=== PATIENT | female | born 1995 | race American Indian/Alaskan Native ===

== ENCOUNTER 2016-06-27 14:55 | Emergency (ER) | payer SELFPAY ==
[2016-06-27] MEDS ORDERED: TYLENOL PO ONE (16:09)
[2016-06-27] MEDS ORDERED: CLEOCIN IM ONE (18:31)
[2016-06-27] MEDS ORDERED: NORCO 5/325 PO ONE (18:31)
--- NOTE | 2016-06-27 18:32 | Emergency Department Report ---
- General Chief complaint: Skin/Abscess/Foreign Body Stated complaint: BOIL UNDER L ARM/L SIDE HEAD/ARM PAIN Time Seen by Provider: 06/27/16 18:22 Source: patient, family Mode of arrival: Ambulatory Limitations: No Limitations - History of Present Illness Initial comments: Patient here reports poor L2 her left underarm. She says she notices several days ago and it's painful at 10 out of 10 and she says she is also having headache at 8 out of 10. She said the boil under her left arm. It is throbbing pain in her headache the front of her head is achy. She said it comes and goes and she gets relief with Tylenol. She is not having any headache at present but she is having pain under her left arm. Denies any discharge from boil. Denies any nausea or vomiting. She reports fever and chills. MD complaint: abscess/boil Onset/Timin -: days(s) Tetanus Up to Date: yes Location: LUE (left armpit) Severity: severe Severity scale (0 -10): 10 Quality: other (pain is throbbing) Consistency: constant Improves with: immobilization, medication Worsens with: palpation, movement Context: other ( abscess to arm.) Associated symptoms: fever, chills Treatments Prior to Arrival: NSAID - Related Data Previous Rx's Medication Instructions Recorded Last Taken Type HYDROcodone/APAP 5-325 [Brandeis 1 each PO Q6HR PRN #14 tablet 06/27/16 Unknown Rx 5/325] Ibuprofen [Motrin] 600 mg PO Q8H PRN #20 tablet 06/27/16 Unknown Rx Sulfamethoxazole/Trimethoprim 1 each PO BID #20 tablet 06/27/16 Unknown Rx [Bactrim DS TAB] Allergies Allergy/AdvReac Type Severity Reaction Status Date / Time silk tape Allergy Rash Uncoded 06/27/16 16:09 Abscess Boil HPI - HPI Chief Complaint: Skin/Abscess/Foreign Body Stated Complaint: BOIL UNDER L ARM/L SIDE HEAD/ARM PAIN Time Seen by Provider: 06/27/16 18:22 Duration: 1 Week Location: Upper Extremity Severity: Severe Home Medications: Previous Rx's Medication Instructions Recorded Last Taken Type HYDROcodone/APAP 5-325 [Brandeis 1 each PO Q6HR PRN #14 tablet 06/27/16 Unknown Rx 5/325] Ibuprofen [Motrin] 600 mg PO Q8H PRN #20 tablet 06/27/16 Unknown Rx Sulfamethoxazole/Trimethoprim 1 each PO BID #20 tablet 06/27/16 Unknown Rx [Bactrim DS TAB] Allergies/Adverse Reactions: Allergies Allergy/AdvReac Type Severity Reaction Status Date / Time silk tape Allergy Rash Uncoded 06/27/16 16:09 ED Review of Systems ROS: Stated complaint: BOIL UNDER L ARM/L SIDE HEAD/ARM PAIN Other details as noted in HPI Comment: All other systems reviewed and negative Constitutional: chills, fever Respiratory: no symptoms reported Cardiovascular: denies: chest pain, palpitations, edema, syncope Gastrointestinal: denies: nausea, vomiting Musculoskeletal: denies: back pain, arthralgia Skin: other (abscess to left armpit) Neurological: denies: headache ED Past Medical Hx - Past Medical History Previous Medical History?: Yes Additional medical history: scolosis. Abscess - Surgical History Past Surgical History?: No - Social History Smoking Status: Never Smoker Substance Use Type: None - Medications Home Medications: Home Medications Medication Instructions Recorded Confirmed Last Taken Type HYDROcodone/APAP 5-325 [Brandeis 1 each PO Q6HR PRN #14 tablet 06/27/16 Unknown Rx 5/325] Ibuprofen [Motrin] 600 mg PO Q8H PRN #20 tablet 06/27/16 Unknown Rx Sulfamethoxazole/Trimethoprim 1 each PO BID #20 tablet 06/27/16 Unknown Rx [Bactrim DS TAB] ED Physical Exam - General Limitations: No Limitations General appearance: alert, in no apparent distress - Head Head exam: Present: atraumatic, normocephalic, normal inspection - ENT ENT exam: Present: normal exam, normal orophraynx, mucous membranes moist, TM's normal bilaterally, normal external ear exam - Respiratory Respiratory exam: Present: normal lung sounds bilaterally. Absent: respiratory distress, chest wall tenderness - Cardiovascular Cardiovascular Exam: Present: normal rhythm, tachycardia, normal heart sounds - Extremities Exam Extremities exam: Present: normal inspection, full ROM, tenderness, normal capillary refill (left armpit). Absent: pedal edema, joint swelling, calf tenderness - Neurological Exam Neurological exam: Present: alert, oriented X3, normal gait, reflexes normal. Absent: motor sensory deficit - Psychiatric Psychiatric exam: Present: normal affect, normal mood - Skin Skin exam: Present: warm, dry, other (cellulitis noted to left armpit. TTP palpate. Positive induration without any fluctuant.) - Expanded Skin Exam Expanded Type of lesion: Present: abscess Distribution of rash: LUE (left armpit.) Description of rash: Present: size (2 x 2 centimeter), tenderness, erythematous , swelling, indurated. Absent: discharge, fluctuant ED Course Vital Signs 06/27/16 06/27/16 06/27/16 16:04 16:12 19:35 Temperature 100.4 F H 99.4 F Pulse Rate 102 H 67 Respiratory 20 20 16 Rate Blood Pressure 146/85 Blood Pressure 104/62 [Left] O2 Sat by Pulse 98 96 Oximetry - Reevaluation(s) Reevaluation #1: 06/27/16 19:21 PT given clindamycin 600 mg IM in emergency room empirically for cellulitis, she was also given Brandeis 5/325 mg 2 tablets by mouth which relieved her pain. No adverse reaction from medication. ED Medical Decision Making - Medical Decision Making ED course: Patient given Brandeis 5/325 mg to telemetry. Emergency room for pain and clindamycin 600 mg IM for cellulitis without any adverse reaction. I with her that she has cellulitic area with some swelling but unable to be drained because there is no fluctuant to area. The total patient that she will need to put warm compresses to area 3-4 times a day to facilitate soft and drainage. I discussed the patient if she has increasing fever, increasing pain and ear redness increase she should return to the emergency room. I described diagnosis and treatment planned and she voiced understanding. Charged home with prescription for Bactrim, Brandeis and Motrin. Critical care attestation.: If time is entered above; I have spent that time in minutes in the direct care of this critically ill patient, excluding procedure time. ED Disposition Clinical Impression: Cellulitis of axilla, left Disposition: DISCHARGED TO HOME OR SELFCARE Is pt being admited?: No Does the pt Need Aspirin: No Condition: Stable Instructions: Cellulitis (ED) Additional Instructions: Please keep affected area clean and dry. Current to the emergency room if you have increased fever, pain and increased redness at site. Take antibiotic as prescribed. Is to not drive or operate heavy machinery while and Brandeis as this can cause drowsiness. Apply warm compresses to area 3-4 times a day to facilitate soft and drainage. Prescriptions: HYDROcodone/APAP 5-325 [Brandeis 5/325] 1 each PO Q6HR PRN #14 tablet PRN Reason: Pain Ibuprofen [Motrin] 600 mg PO Q8H PRN #20 tablet PRN Reason: Pain Sulfamethoxazole/Trimethoprim [Bactrim DS TAB] 1 each PO BID #20 tablet Referrals: PRIMARY CARE, [Primary Care Provider] - 06/30/16 Forms: Accompanied Note, Work/School Release Form(ED)
[2016-06-27 19:36] VITALS: BP 104/62
== END 2016-06-27 19:40 | disposition home or self-care (01) ==
LOC: ED 14:55
DX: L03.112 Cellulitis of left axilla (principal); Z91.048 Other nonmedicinal substance allergy status
CPT/HCPCS: 96372

== ENCOUNTER 2017-01-06 09:05 | Emergency (ER) | payer SELFPAY ==
[2017-01-06 09:14] VITALS: BP 125/89
--- NOTE | 2017-01-06 12:21 | Emergency Department Report ---
ED ENT HPI - General Chief complaint: Sore Throat Stated complaint: SORE THROAT, COUGHING Time Seen by Provider: 01/06/17 12:03 Source: patient Mode of arrival: Ambulatory Limitations: No Limitations - History of Present Illness Initial comments: PT c/o 3-4 days of sore throat. PT states her throat feels dry and it hurts to swallow. PT states she has nasal congestion and cough. PT states she has a productive cough and today she coughed up blood. PT states she has a hx of strep throat. PT states she took some Aleve and that helped her sore throat. PT states she is still working at [employer]. 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 PT states she thought she was just getting a cold but she continues to feel worse. PT states people come into work all the time and cough without covering their mouths. MD complaint: sore throat -: Gradual, days(s) (4) Severity: moderate Severity scale (0 -10): 4 Quality: aching, sharp (pain with swallowing ) Consistency: constant (improved with OTC medication, but still painful ) Improves with: NSAID Worsens with: swallowing, eating Associated Symptoms: cough, pain with swallowing, sore throat. denies: fever, tinnitus, discharge from ear, rhinorrhea - Related Data Previous Rx's Medication Instructions Recorded Last Taken Type Azithromycin [Zithromax] 250 mg PO DAILY #6 tablet 01/06/17 Unknown Rx Benzonatate [Tessalon Perles] 100 mg PO Q8HR PRN #12 capsule 01/06/17 Unknown Rx Carbamide Peroxide [Ear Wax 5 drops AU BID PRN #1 bottle 01/06/17 Unknown Rx Removal] Ibuprofen [Motrin] 600 mg PO Q8H PRN #15 tablet 01/06/17 Unknown Rx Allergies Allergy/AdvReac Type Severity Reaction Status Date / Time silk tape Allergy Rash Uncoded 06/27/16 16:09 ED Dental HPI - General Chief complaint: Sore Throat Stated complaint: SORE THROAT, COUGHING Time Seen by Provider: 01/06/17 12:03 Source: patient Mode of arrival: Ambulatory Limitations: No Limitations - Related Data Previous Rx's Medication Instructions Recorded Last Taken Type Azithromycin [Zithromax] 250 mg PO DAILY #6 tablet 01/06/17 Unknown Rx Benzonatate [Tessalon Perles] 100 mg PO Q8HR PRN #12 capsule 01/06/17 Unknown Rx Carbamide Peroxide [Ear Wax 5 drops AU BID PRN #1 bottle 01/06/17 Unknown Rx Removal] Ibuprofen [Motrin] 600 mg PO Q8H PRN #15 tablet 01/06/17 Unknown Rx Allergies Allergy/AdvReac Type Severity Reaction Status Date / Time silk tape Allergy Rash Uncoded 06/27/16 16:09 ED Review of Systems ROS: Stated complaint: SORE THROAT, COUGHING Other details as noted in HPI Comment: All other systems reviewed and negative Constitutional: malaise ENT: throat pain, congestion (no nasal drainage ) Respiratory: cough (productive cough with yellow phelm, also 1 episode of hemoptysis ) Cardiovascular: denies: chest pain Gastrointestinal: denies: abdominal pain Genitourinary: denies: abnormal menses ED Past Medical Hx - Past Medical History Previous Medical History?: Yes Additional medical history: scolosis. Abscess - Surgical History Past Surgical History?: No - Social History Smoking Status: Never Smoker Substance Use Type: Alcohol, Non Opiate Pain - Medications Home Medications: Home Medications Medication Instructions Recorded Confirmed Last Taken Type Azithromycin [Zithromax] 250 mg PO DAILY #6 tablet 01/06/17 Unknown Rx Benzonatate [Tessalon Perles] 100 mg PO Q8HR PRN #12 capsule 01/06/17 Unknown Rx Carbamide Peroxide [Ear Wax 5 drops AU BID PRN #1 bottle 01/06/17 Unknown Rx Removal] Ibuprofen [Motrin] 600 mg PO Q8H PRN #15 tablet 01/06/17 Unknown Rx ED Physical Exam - General Limitations: No Limitations General appearance: alert, in no apparent distress - Head Head exam: Present: atraumatic, normocephalic, normal inspection, other (R maxillary sinus tenderness, no frontal sinus tenderness ) - Eye Eye exam: Present: normal appearance. Absent: PERRL, EOMI, conjunctival injection, nystagmus - ENT ENT exam: Present: mucous membranes moist, normal external ear exam. Absent: normal exam, TM's normal bilaterally - Expanded ENT Exam Expanded Ear exam: Present: normal external inspection TM/Canal exam: Cerumen Impaction: Right TM, Left TM Mouth exam: Absent: drooling, trismus, muffled voice Teeth exam: Present: normal inspection Throat exam: Positive: tonsillar erythema, tonsillomegaly, tonsillar exudate (R> L) - Neck Neck exam: Present: normal inspection, tenderness, full ROM. Absent: lymphadenopathy - Respiratory Respiratory exam: Present: normal lung sounds bilaterally. Absent: respiratory distress, wheezes, rales, rhonchi, chest wall tenderness - Cardiovascular Cardiovascular Exam: Present: regular rate, normal rhythm, normal heart sounds - GI/Abdominal GI/Abdominal exam: Present: soft. Absent: tenderness - Extremities Exam Extremities exam: Present: normal inspection, full ROM - Back Exam Back exam: Present: normal inspection, full ROM. Absent: tenderness, CVA tenderness (R), CVA tenderness (L) - Neurological Exam Neurological exam: Present: alert, oriented X3, CN II-XII intact, normal gait - Expanded Neurological Exam Expanded Patient oriented to: Present: person, place, time Speech: Present: fluid speech Best Eye Response ([place]): (4) open spontaneously Best Motor Response ([place]): (6) obeys commands Best Verbal Response ([place]): (5) oriented [place] Total: 15 - Psychiatric Psychiatric exam: Present: normal affect, normal mood - Skin Skin exam: Present: warm, dry, intact, normal color ED Course Vital Signs 01/06/17 09:10 Temperature 98.4 F Pulse Rate 83 Respiratory 18 Rate Blood Pressure 125/89 O2 Sat by Pulse 97 Oximetry - Reevaluation(s) Reevaluation #1: 01/06/17 12:26 PT aware of plan of care. PT has no questions at this time. Reevaluation #2: 01/06/17 13:15 PT appears to be sleeping. Rapid strep and Influenza negative. - Pulse Oximetry Interpretation Digit-Finger Initial Pulse Oximetry Readin Actions Taken: none ED Medical Decision Making - Radiology Data Radiology results: report reviewed CXR: NAP - Differential Diagnosis pharyngitis, uri, pna, bronchitis Critical Care Time: No Critical care attestation.: If time is entered above; I have spent that time in minutes in the direct care of this critically ill patient, excluding procedure time. ED Disposition Clinical Impression: Exudative pharyngitis, Cough Maxillary sinusitis, acute Qualifiers: Recurrence: non-recurrent Qualified Code(s): J01.00 - Acute maxillary sinusitis , unspecified Cerumen impaction Qualifiers: Laterality: bilateral Qualified Code(s): H61.23 - Impacted cerumen, bilateral Disposition: TO HOME OR SELFCARE Is pt being admited?: No Does the pt Need Aspirin: No Condition: Stable Instructions: Pharyngitis (ED), Sinusitis (ED), Cerumen Impaction (ED), Strep Throat (ED), Acute Bronchitis (ED), Acute Cough (ED) Additional Instructions: Rest Increase fluids Use a normal saline nasal spray at least 4 times a day Do not use qtips A throat culture is pending - if your culture is positive for strep throat, someone from the hospital should call you Follow up with PCP in 3-5 days Return to ED if worsening or you develop fevers, shortness or breath, difficulty swallowing or have other concerns Prescriptions: Azithromycin [Zithromax] 250 mg PO DAILY #6 tablet Benzonatate [Tessalon Perles] 100 mg PO Q8HR PRN #12 capsule PRN Reason: Cough Carbamide Peroxide [Ear Wax Removal] 5 drops AU BID PRN #1 bottle PRN Reason: Ear Wax Ibuprofen [Motrin] 600 mg PO Q8H PRN #15 tablet PRN Reason: Pain Referrals: PRIMARY CAREMD [Primary Care Provider] - 3-5 Days ONEYDA LOPEZ MD [Staff Physician] - 3-5 Days [facility] [Outside] - 3-5 Days Forms: Accompanied Note, Work/School Release Form(ED) Time of Disposition: 13:15
--- NOTE | 2017-01-06 12:46 | XRay Report ---
XRAY CHEST TWO VIEWS: 01/06/17 12:23 CLINICAL: Hematemesis. COMPARISON: None FINDINGS: Normal heart and pulmonary vasculature. The lungs are normally expanded and clear.The bones and soft tissues are unremarkable. IMPRESSION: Normal chest.
== END 2017-01-06 13:32 | disposition home or self-care (01) ==
LOC: ED 09:05
DX: J02.9 Acute pharyngitis, unspecified (principal); J01.00 Acute maxillary sinusitis, unspecified; H61.23 Impacted cerumen, bilateral; Z91.048 Other nonmedicinal substance allergy status
CPT/HCPCS: 71020; 87116; 87400; 87430; 99283

== ENCOUNTER 2019-04-29 11:23 | Emergency (ER) | payer OTHER ==
--- NOTE | 2019-04-29 14:51 | Event Note ---
ED Screening Note Date of service: 04/29/19 Time: 14:46 ED Screening Note: 23 y o presents wanting a test stating she is 3 days late and took 4 test that was positive She denies any other symptoms This initial assessment/diagnostic orders/clinical plan/treatment(s) is/are s ubject to change based on patients health status, clinical progression and re- assessment by fellow clinical providers in the ED. Further treatment and workup at subsequent clinical providers discretion. Patient/guardian urged not to elope from the ED as their condition may be serious if not clinically assessed and managed. Initial orders include: Pt presents with a non-medical emergency Examination is normal, Vital sign are stable Pt given information for clinics to follow up with obgyn for further treatment and evaluation Also discussed strict return precautions in detail with pt who verbalized understanding
[2019-04-29 14:55] VITALS: BP 146/73
== END 2019-04-29 14:57 | disposition left against medical advice (07) ==
LOC: ED 11:23
DX: Z32.00 Encounter for pregnancy test, result unknown (principal)
CPT/HCPCS: 99282

== ENCOUNTER 2021-05-03 06:47 | Emergency (ER) | payer MEDICAID, OTHER ==
[2021-05-03] MEDS ORDERED: IBUPROFEN 600 MG TAB PO ONE (09:51)
--- NOTE | 2021-05-03 09:55 | Emergency Department Report ---
ED ENT HPI - General Chief complaint: Sore Throat Stated complaint: STREP THROAT Time Seen by Provider: 05/03/21 08:59 Source: patient Mode of arrival: Ambulatory Limitations: No Limitations - History of Present Illness Initial comments: 25-year-old -[place] female presents to the emergency room for 3-day history of sore throat. She states is painful to swallow. She denies any fever no chills. States she had strep throat in the past as a child. She states she been taking a dose of Sonal-Hoopa plus. Has not taken anything for pain. Den ies any past medical history currently takes no meds on a daily basis and has no known drug allergies. Patient reports she does not have a primary care provider. MD complaint: sore throat Onset/Timin -: days(s) Location: throat Severity: moderate Severity scale (0 -10): 7 Quality: sharp Consistency: constant Improves with: none Worsens with: swallowing Associated Symptoms: pain with swallowing, sore throat - Related Data Previous Rx's Medication Instructions Recorded Last Taken Type Azithromycin [Zithromax] 250 mg PO DAILY #6 tablet 01/06/17 Unknown Rx Benzonatate [Tessalon Perles] 100 mg PO Q8HR PRN #12 capsule 01/06/17 Unknown Rx Carbamide Peroxide [Ear Wax 5 drops AU BID PRN #1 bottle 01/06/17 Unknown Rx Removal] Ibuprofen [Motrin] 600 mg PO Q8H PRN #15 tablet 01/06/17 Unknown Rx Ibuprofen [Motrin 800 MG tab] 800 mg PO Q8HR PRN #30 tablet 05/03/21 Unknown Rx Allergies Allergy/AdvReac Type Severity Reaction Status Date / Time silk tape Allergy Rash Uncoded 05/03/21 08:32 ED Dental HPI - General Chief complaint: Sore Throat Stated complaint: STREP THROAT Time Seen by Provider: 05/03/21 08:59 Source: patient Mode of arrival: Ambulatory Limitations: No Limitations - Related Data Previous Rx's Medication Instructions Recorded Last Taken Type Azithromycin [Zithromax] 250 mg PO DAILY #6 tablet 01/06/17 Unknown Rx Benzonatate [Tessalon Perles] 100 mg PO Q8HR PRN #12 capsule 01/06/17 Unknown Rx Carbamide Peroxide [Ear Wax 5 drops AU BID PRN #1 bottle 09/30/17 Unknown Rx Removal] Ibuprofen [Motrin] 600 mg PO Q8H PRN #15 tablet 01/06/17 Unknown Rx Ibuprofen [Motrin 800 MG tab] 800 mg PO Q8HR PRN #30 tablet 05/03/21 Unknown Rx Allergies Allergy/AdvReac Type Severity Reaction Status Date / Time silk tape Allergy Rash Uncoded 05/03/21 08:32 ED Review of Systems ROS: Stated complaint: STREP THROAT Other details as noted in HPI Comment: All other systems reviewed and negative ED Past Medical Hx - Past Medical History Additional medical history: Scoliosis - Social History Smoking Status: Never Smoker Substance Use Type: None - Medications Home Medications: Home Medications Medication Instructions Recorded Confirmed Last Taken Type Azithromycin [Zithromax] 250 mg PO DAILY #6 tablet 01/06/17 Unknown Rx Benzonatate [Tessalon Perles] 100 mg PO Q8HR PRN #12 capsule 01/06/17 Unknown Rx Carbamide Peroxide [Ear Wax 5 drops AU BID PRN #1 bottle 01/06/17 Unknown Rx Removal] Ibuprofen [Motrin] 600 mg PO Q8H PRN #15 tablet 01/06/17 Unknown Rx Ibuprofen [Motrin 800 MG tab] 800 mg PO Q8HR PRN #30 tablet 05/03/21 Unknown Rx ED Physical Exam - General Limitations: No Limitations General appearance: alert - Head Head exam: Present: atraumatic, normocephalic - Eye Eye exam: Present: normal appearance - Expanded ENT Exam Expanded Throat exam: Positive: tonsillar erythema. Negative: tonsillomegaly, tonsillar exudate, R peritonsillar mass, L peritonsillar mass - Neck Neck exam: Present: tenderness, full ROM, lymphadenopathy - Respiratory Respiratory exam: Absent: respiratory distress, accessory muscle use - Cardiovascular Cardiovascular Exam: Present: regular rate - Rectal Rectal exam: Present: deferred - Extremities Exam Extremities exam: Present: normal inspection - Back Exam Back exam: Present: normal inspection - Neurological Exam Neurological exam: Present: alert, oriented X3, normal gait - Psychiatric Psychiatric exam: Present: normal affect, normal mood - Skin Skin exam: Present: warm, dry, intact, normal color. Absent: rash ED Course Vital Signs 05/03/21 08:31 Temperature 98.9 F Pulse Rate 87 Respiratory 20 Rate Blood Pressure 154/95 [Left] O2 Sat by Pulse 100 Oximetry ED Medical Decision Making - Lab Data Lab Results 05/03/21 Range/Units Unknown Group A Strep Rapid Negative (Negative) - Medical Decision Making 25-year-old -[place] female presents to the emergency room for 3-day history of sore throat. She states is painful to swallow. She denies any fever no chills. States she had strep throat in the past as a child. She states she been taking a dose of Sonal-Hoopa plus. Has not taken anything for pain. Denies any past medical history currently takes no meds on a daily basis and has no known drug allergies. Patient reports she does not have a primary care provider. Rapid strep has been obtained and sent out by this provider. Ibuprofen 600 mg have been ordered for pain management. Strep test is negative. Discussed with patient she needs to get Covid tested. She can take ibuprofen or Tylenol for pain. Warm salt water gargles. Follow-up with your primary care provider. Critical care attestation.: If time is entered above; I have spent that time in minutes in the direct care of this critically ill patient, excluding procedure time. ED Disposition Clinical Impression: Sore throat (viral) Disposition: HOME / SELF CARE / HOMELESS Is pt being admited?: No Does the pt Need Aspirin: No Condition: Stable Instructions: Sore Throat, [id number] Additional Instructions: Strep test is negative for any infection. This most likely viral. I do recommend Covid testing. You can take Tylenol ibuprofen for pain warm salt water gargles. Follow-up with a primary care provider. Prescriptions: Ibuprofen [Motrin 800 MG tab] 800 mg PO Q8HR PRN #30 tablet PRN Reason: Pain , Severe (7-10) Referrals: GRISELDA SAAB MD [Primary Care Provider] - 3-5 Days ANTHONY SAHU MD [Staff Physician] - 3-5 Days GILBERT KING MD [Staff Physician] - 3-5 Days Forms: Work/School Release Form(ED) Time of Disposition: 10:40
[2021-05-03 11:30] VITALS: BP 132/89
== END 2021-05-03 11:28 | disposition home or self-care (01) ==
LOC: ED 06:47
DX: J02.8 Acute pharyngitis due to other specified organisms (principal); M41.9 Scoliosis, unspecified
CPT/HCPCS: 87116; 87430; 99283

== ENCOUNTER 2021-05-08 09:50 | Emergency (ER) | payer BC, MEDICAID ==
--- NOTE | 2021-05-08 10:20 | Emergency Department Report ---
ED Female HPI - General Chief complaint: Urogenital-Female Stated complaint: UTI Time Seen by Provider: 05/08/21 10:12 Source: patient Mode of arrival: Ambulatory Limitations: No Limitations - History of Present Illness Initial comments: Patient is a 25-year-old female presents emergency room with complaints of concerns for a UTI. She states that her symptoms began 2 to 3 days ago. She has associated urinary frequency, urinary urgency, dysuria at the end of urination, hematuria, lower abdominal cramping. She denies any fever, vomiting, diarrhea, back pain. Patient denies any past medical history. She has an allergy to silk tape. She states that her last menstrual cycle was the beginning of April 2021. - Related Data Previous Rx's Medication Instructions Recorded Last Taken Type Azithromycin [Zithromax] 250 mg PO DAILY #6 tablet 01/06/17 Unknown Rx Benzonatate [Tessalon Perles] 100 mg PO Q8HR PRN #12 capsule 01/06/17 Unknown Rx Carbamide Peroxide [Ear Wax 5 drops AU BID PRN #1 bottle 01/06/17 Unknown Rx Removal] Ibuprofen [Motrin] 600 mg PO Q8H PRN #15 tablet 01/06/17 Unknown Rx Ibuprofen [Motrin 800 MG tab] 800 mg PO Q8HR PRN #30 tablet 05/03/21 Unknown Rx Phenazopyridine [Pyridium] 100 mg PO TID 2 Days #6 tab 05/08/21 Unknown Rx cephALEXin [Keflex] 500 mg PO BID 7 Days #14 cap 05/08/21 Unknown Rx Allergies Allergy/AdvReac Type Severity Reaction Status Date / Time silk tape Allergy Rash Uncoded 05/03/21 08:32 ED Review of Systems ROS: Stated complaint: UTI Other details as noted in HPI Comment: All other systems reviewed and negative ED Past Medical Hx - Past Medical History Previous Medical History?: Yes Additional medical history: Scoliosis - Surgical History Past Surgical History?: No - Social History Smoking Status: Never Smoker Substance Use Type: None - Medications Home Medications: Home Medications Medication Instructions Recorded Confirmed Last Taken Type Azithromycin [Zithromax] 250 mg PO DAILY #6 tablet 01/06/17 Unknown Rx Benzonatate [Tessalon Perles] 100 mg PO Q8HR PRN #12 capsule 01/06/17 Unknown Rx Carbamide Peroxide [Ear Wax 5 drops AU BID PRN #1 bottle 01/06/17 Unknown Rx Removal] Ibuprofen [Motrin] 600 mg PO Q8H PRN #15 tablet 01/06/17 Unknown Rx Ibuprofen [Motrin 800 MG tab] 800 mg PO Q8HR PRN #30 tablet 05/03/21 Unknown Rx Phenazopyridine [Pyridium] 100 mg PO TID 2 Days #6 tab 05/08/21 Unknown Rx cephALEXin [Keflex] 500 mg PO BID 7 Days #14 cap 05/08/21 Unknown Rx ED Physical Exam - General Limitations: No Limitations General appearance: alert, in no apparent distress - Head Head exam: Present: atraumatic, normocephalic - Eye Eye exam: Present: normal appearance - ENT ENT exam: Present: mucous membranes moist - Respiratory Respiratory exam: Present: normal lung sounds bilaterally. Absent: respiratory distress, wheezes, rales, rhonchi, stridor, chest wall tenderness, accessory muscle use, decreased breath sounds, prolonged expiratory - Cardiovascular Cardiovascular Exam: Present: regular rate, normal rhythm, normal heart sounds. Absent: systolic murmur, diastolic murmur, rubs, gallop - GI/Abdominal GI/Abdominal exam: Present: soft, normal bowel sounds. Absent: distended, tenderness, guarding, rebound, rigid - Back Exam Back exam: Absent: CVA tenderness (R), CVA tenderness (L) - Neurological Exam Neurological exam: Present: alert, oriented X3 - Psychiatric Psychiatric exam: Present: normal affect, normal mood - Skin Skin exam: Present: warm, dry, intact ED Course Vital Signs 05/08/21 10:06 Temperature 98.7 F Pulse Rate 97 H Respiratory 20 Rate Blood Pressure 130/78 [Right] O2 Sat by Pulse 100 Oximetry ED Medical Decision Making - Medical Decision Making Patient is a 25-year-old female presents emergency room with complaints of concerns for a UTI. She states that her symptoms began 2 to 3 days ago. She has associated urinary frequency, urinary urgency, dysuria at the end of urination, hematuria, lower abdominal cramping. She denies any fever, vomiting, diarrhea, back pain. Patient denies any past medical history. She has an allergy to silk tape. She states that her last menstrual cycle was the beg inning of April 2021. Vitals are normal. No abdominal tenderness or CVA tenderness on exam. UA shows evidence of UTI. Urine is negative. Discussed all results with patient. Patient given prescription for Keflex and Prodium. Advised patient please take medication as prescribed. Increase your water intake. Follow-up with your primary care doctor for reexamination. Medication may turn your urine orange, this is normal. Return to emergency room for any new or worsening symptoms. Critical care attestation.: If time is entered above; I have spent that time in minutes in the direct care of this critically ill patient, excluding procedure time. ED Disposition Clinical Impression: UTI (urinary tract infection) Qualifiers: Urinary tract infection type: acute cystitis Hematuria presence: with hematuria Qualified Code(s): N30.01 - Acute cystitis with hematuria Disposition: HOME / SELF CARE / HOMELESS Is pt being admited?: No Does the pt Need Aspirin: No Condition: Stable Instructions: Urinary Tract Infection, Adult Additional Instructions: please take medication as prescribed. Increase your water intake. Follow-up with your primary care doctor for reexamination. Medication may turn your urine orange, this is normal. Return to emergency room for any new or worsening symptoms. Prescriptions: cephALEXin [Keflex] 500 mg PO BID 7 Days #14 cap Phenazopyridine [Pyridium] 100 mg PO TID 2 Days #6 tab Referrals: PRIMARY MD [facility] [Primary Care Provider] - 3-5 Days ANTHONY SAHU MD [Staff Physician] - 3-[address] [facility] [Provider Group] - 3-5 Days Time of Disposition: 11:26 Print Language: VIET[place]ESE
[2021-05-08 11:20] LABS: Bacteria,Urine 1+ /HPF (Negative); Bilirubin,Urine NEG (Negative); Blood,Urine LG (Negative); Color,Urine Yellow (Yellow); Mucus,Urine FEW /HPF; Urobilinogen,Urine < 2.0 mg/dL (<2.0)
[2021-05-08 11:24] LABS: HCG Qualitative,Urine Negative (Negative)
[2021-05-08 11:48] VITALS: BP 121/73
== END 2021-05-08 11:47 | disposition home or self-care (01) ==
LOC: ED 09:50
DX: N39.0 Urinary tract infection, site not specified (principal); Z79.899 Other long term (current) drug therapy; Z91.09 Other allergy status, other than to drugs and biological substances
CPT/HCPCS: 81001; 81025; 87086; 99283

== ENCOUNTER 2021-10-01 11:54 | Emergency (ER) | payer BC, MEDICAID ==
[2021-10-01] MEDS ORDERED: PENICILLIN G BENZATHINE 1.2 MILLION UNIT/2 ML INJ IM ONE (16:50)
[2021-10-01] MEDS ORDERED: dexAMETHasone 4 MG/ML VIAL PO ONE (16:50)
[2021-10-01] MEDS ORDERED: KETOROLAC 10 MG TAB PO ONE (16:50)
--- NOTE | 2021-10-01 17:13 | Emergency Department Report ---
ED ENT HPI - General Chief complaint: Sore Throat Stated complaint: SORE THROAT Time Seen by Provider: 10/01/21 16:36 Source: patient Mode of arrival: Ambulatory Limitations: No Limitations - History of Present Illness Initial comments: 25-year-old black female with no past medical history presents to the emergency department for evaluation of 1 day history of sore throat. She states that last night she has developed sore throat out of the blue that has gotten progressively worse since then along with right ear pain, fever, and swollen lymph nodes. She denies headache, abdominal pain, cough, and runny nose. She has not taken any medication for symptoms and states that she had the same type symptoms 3 to 4 months ago. MD complaint: sore throat -: Sudden, Last night Location: R ear, throat Severity: severe Severity scale (0 -10): 9 Quality: stabbing, aching Consistency: constant Worsens with: swallowing Associated Symptoms: fever, pain with swallowing, sore throat. denies: cough, gum swelling, toothache, tinnitus, hearing loss, discharge from ear, rhinorrhea - Related Data Previous Rx's Medication Instructions Recorded Last Taken Type Azithromycin [Zithromax] 250 mg PO DAILY #6 tablet 01/06/17 Unknown Rx Benzonatate [Tessalon Perles] 100 mg PO Q8HR PRN #12 capsule 01/06/17 Unknown Rx Carbamide Peroxide [Ear Wax 5 drops AU BID PRN #1 bottle 01/06/17 Unknown Rx Removal] Ibuprofen [Motrin] 600 mg PO Q8H PRN #15 tablet 01/06/17 Unknown Rx Ibuprofen [Motrin 800 MG tab] 800 mg PO Q8HR PRN #30 tablet 05/03/21 Unknown Rx Phenazopyridine [Pyridium] 100 mg PO TID 2 Days #6 tab 05/08/21 Unknown Rx cephALEXin [Keflex] 500 mg PO BID 7 Days #14 cap 05/08/21 Unknown Rx Nystas/Diphen/Xyl Visc/Mylanta 15 ml MM Q4H PRN #120 ml 10/01/21 Unknown Rx [Magic Mouthwash] methylPREDNISolone [Medrol 4MG 4 mg PO DAILY #1 pack 10/01/21 Unknown Rx DOSEPAK (21 tabs)] Allergies Allergy/AdvReac Type Severity Reaction Status Date / Time silk tape Allergy Rash Uncoded 10/01/21 12:04 ED Dental HPI - General Chief complaint: Sore Throat Stated complaint: SORE THROAT Time Seen by Provider: 10/01/21 16:36 Source: patient Mode of arrival: Ambulatory Limitations: No Limitations - Related Data Previous Rx's Medication Instructions Recorded Last Taken Type Azithromycin [Zithromax] 250 mg PO DAILY #6 tablet 01/06/17 Unknown Rx Benzonatate [Tessalon Perles] 100 mg PO Q8HR PRN #12 capsule 01/06/17 Unknown Rx Carbamide Peroxide [Ear Wax 5 drops AU BID PRN #1 bottle 01/06/17 Unknown Rx Removal] Ibuprofen [Motrin] 600 mg PO Q8H PRN #15 tablet 01/06/17 Unknown Rx Ibuprofen [Motrin 800 MG tab] 800 mg PO Q8HR PRN #30 tablet 05/03/21 Unknown Rx Phenazopyridine [Pyridium] 100 mg PO TID 2 Days #6 tab 05/08/21 Unknown Rx cephALEXin [Keflex] 500 mg PO BID 7 Days #14 cap 05/08/21 Unknown Rx Nystas/Diphen/Xyl Visc/Mylanta 15 ml MM Q4H PRN #120 ml 10/01/21 Unknown Rx [Magic Mouthwash] methylPREDNISolone [Medrol 4MG 4 mg PO DAILY #1 pack 10/01/21 Unknown Rx DOSEPAK (21 tabs)] Allergies Allergy/AdvReac Type Severity Reaction Status Date / Time silk tape Allergy Rash Uncoded 10/01/21 12:04 ED Review of Systems ROS: Stated complaint: SORE THROAT Other details as noted in HPI Constitutional: fever. denies: chills, weakness Eyes: denies: eye pain ENT: throat pain. denies: dental pain, congestion Respiratory: denies: cough, shortness of breath Cardiovascular: denies: chest pain Gastrointestinal: denies: abdominal pain, nausea, vomiting Genitourinary: denies: urgency, dysuria Musculoskeletal: denies: back pain Skin: denies: rash, lesions Neurological: denies: headache, weakness ED Past Medical Hx - Past Medical History Additional medical history: Scoliosis - Social History Smoking Status: Never Smoker Substance Use Type: None - Medications Home Medications: Home Medications Medication Instructions Recorded Confirmed Last Taken Type Azithromycin [Zithromax] 250 mg PO DAILY #6 tablet 01/06/17 Unknown Rx Benzonatate [Tessalon Perles] 100 mg PO Q8HR PRN #12 capsule 01/06/17 Unknown Rx Carbamide Peroxide [Ear Wax 5 drops AU BID PRN #1 bottle 01/06/17 Unknown Rx Removal] Ibuprofen [Motrin] 600 mg PO Q8H PRN #15 tablet 01/06/17 Unknown Rx Ibuprofen [Motrin 800 MG tab] 800 mg PO Q8HR PRN #30 tablet 05/03/21 Unknown Rx Phenazopyridine [Pyridium] 100 mg PO TID 2 Days #6 tab 05/08/21 Unknown Rx cephALEXin [Keflex] 500 mg PO BID 7 Days #14 cap 05/08/21 Unknown Rx Nystas/Diphen/Xyl Visc/Mylanta 15 ml MM Q4H PRN #120 ml 10/01/21 Unknown Rx [Magic Mouthwash] methylPREDNISolone [Medrol 4MG 4 mg PO DAILY #1 pack 10/01/21 Unknown Rx DOSEPAK (21 tabs)] ED Physical Exam - General Limitations: No Limitations General appearance: alert, in no apparent distress - Head Head exam: Present: atraumatic, normocephalic - Eye Eye exam: Present: normal appearance. Absent: conjunctival injection, periorbital swelling, periorbital tenderness - Expanded ENT Exam Expanded Mouth exam: Present: trismus. Absent: drooling Throat exam: Positive: tonsillar erythema, tonsillomegaly, tonsillar exudate. Negative: R peritonsillar mass, L peritonsillar mass - Neck Neck exam: Present: normal inspection, tenderness, lymphadenopathy (Anterior cervical). Absent: meningismus, thyromegaly - Respiratory Respiratory exam: Present: normal lung sounds bilaterally. Absent: respiratory distress, wheezes, rales, rhonchi, stridor, chest wall tenderness - Cardiovascular Cardiovascular Exam: Present: regular rate, normal heart sounds - GI/Abdominal GI/Abdominal exam: Present: soft, normal bowel sounds. Absent: distended, tenderness, guarding, rebound, rigid - Extremities Exam Extremities exam: Present: normal inspection - Back Exam Back exam: Present: normal inspection - Neurological Exam Neurological exam: Present: alert, oriented X3 - Psychiatric Psychiatric exam: Present: normal affect, normal mood - Skin Skin exam: Present: warm, dry, intact, normal color ED Course Vital Signs 10/01/21 12:01 Temperature 100.2 F H Pulse Rate 97 H Respiratory 18 Rate Blood Pressure 147/88 [Left] O2 Sat by Pulse 100 Oximetry ED Medical Decision Making - Medical Decision Making 25-year-old black female with no past medical history presents to the emergency department for evaluation of 1 day history of sore throat. She states that last night she has developed sore throat out of the blue that has gotten progressively worse since then along with right ear pain, fever, and swollen lymph nodes. She denies headache, abdominal pain, cough, and runny nose. She has not taken any medication for symptoms and states that she had the same type symptoms 3 to 4 months ago. Centor score of 4 (51 to 53% probability of strep pharyngitis). Patient will be treated with one-time dose of Bicillin IA 1,200,000 units IM along with Decadron 8 mg, and Toradol 10 mg p.o. She will be discharged home with Medrol Dosepak and Magic mouthwash to use as directed. She states that she has had this issue happened to her several times so she is advised to follow-up with otolaryngology for further evaluation and management. She was advised to return to the emergency department for any concerning symptoms. She verbalizes understanding of and agreement with plan of care. Critical care attestation.: If time is entered above; I have spent that time in minutes in the direct care of this critically ill patient, excluding procedure time. ED Disposition Clinical Impression: Exudative pharyngitis Disposition: 01 HOME / SELF CARE / HOMELESS Is pt being admited?: No Does the pt Need Aspirin: No Condition: Stable Instructions: Strep Throat, Adult, [id number] Additional Instructions: Take medications as prescribed. Follow-up with ear nose and throat doctor for further evaluation and management. Return to the emergency department for any concerning symptoms. Prescriptions: Nystas/Diphen/Xyl Visc/Mylanta [Magic Mouthwash] 15 ml MM Q4H PRN #120 ml PRN Reason: Sore Throat methylPREDNISolone [Medrol 4MG DOSEPAK (21 tabs)] 4 mg PO DAILY #1 pack Referrals: SHARYN COX MD [Staff Physician] - 3-5 Days CHAI CERVANTES MD [Staff Physician] - 3-5 Days Forms: Work/School Release Form(ED) Time of Disposition: 17:18
[2021-10-01 17:33] VITALS: BP 128/84
== END 2021-10-01 17:32 | disposition home or self-care (01) ==
LOC: ED 11:54
DX: J02.9 Acute pharyngitis, unspecified (principal); Z91.048 Other nonmedicinal substance allergy status
CPT/HCPCS: 96372; 99282; J0561; J1100